=== PATIENT | female | born 1990 | race Caucasian/White ===

== ENCOUNTER 2018-11-11 16:45 | Emergency (ER) | payer OTHER ==
[2018-11-11 17:23] VITALS: BP 125/65
--- NOTE | 2018-11-11 17:27 | UC ---
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 DOGS UTD VACCINATIONS. PT UTD TETANUS. - History of Current Complaint Chief Complaint: UCBiteInjury Stated Complaint: DOG BITE Time Seen by Provider: 11/11/18 17:12 Hx Obtained From: Patient Hx Last Menstrual Period: 1 month ago Severity Currently: Moderate Severity Initially: Moderate Pain Intensity: 3 Pain Scale Used: 0-10 Numeric Onset/Duration: Sudden Onset, Lasting Hours, Still Present Type of Bite: Pet Has Animal Been Immunized?: Yes Character: Abrasion/Laceration Aggravating Factor(s): Nothing Alleviating Factor(s): Nothing Associated Signs And Symptoms: Negative: Fever, Erythema Animal Available for Observation: Yes - Allergies/Home Medications Allergies/Adverse Reactions: Allergies Allergy/AdvReac Type Severity Reaction Status Date / Time No Known Allergies Allergy Verified 11/11/18 17:18 Home Medications: Home Medications Eluxadoline (NF) [Viberzi] 75 mg PO DAILY 11/11/18 [History Confirmed 11/11/18] PMH/Surg Hx/FS Hx/Imm Hx Respiratory History: Asthma Other GI/ History: IBS - Surgical History Surgical History: None - Social History Alcohol Use: Weekly Substance Use Type: None Smoking Status (MU): Never Smoked Tobacco - Immunization History Most Recent Tetanus Shot: 2018 Review of Systems All Other Systems Reviewed And Are Negative: Yes Constitutional: Positive: Negative Skin: Positive: Other - lacerations Respiratory: Positive: Negative Cardiovascular: Positive: Negative Gastrointestinal: Positive: Negative Musculoskeletal: Positive: Negative Physical Exam Triage Information Reviewed: Yes Appearance: Well-Appearing, No Pain Distress, Well-Nourished Vital Signs: Initial Vital Signs Temp 98.8 F 11/11/18 17:16 Pulse 94 11/11/18 17:16 Resp 18 11/11/18 17:16 BP 125/65 11/11/18 17:16 Pulse Ox 100 11/11/18 17:16 Vital Signs Reviewed: Yes Eyes: Positive: Conjunctiva Clear ENT: Positive: Hearing grossly normal Neck: Positive: Supple Respiratory: Positive: No respiratory distress, No accessory muscle use Cardiovascular: Positive: Pulses Normal Abdomen Description: Positive: Soft Musculoskeletal: Positive: ROM Intact, No Edema Neurological: Positive: Alert Psychological: Positive: Age Appropriate Behavior Skin: Positive: Other - LACERATIONS: RIGHT FOREARM - 0.6CM. LEFT 4TH FINGER OVERLYING DIP - 1CM. LEFT PALM X 3 - 1.4CM, 1CM, 0.8CM. LEFT WRIST LATERALLY X 2 - 1.2CM, 1CM Procedures - Laceration/Wound Repair 1 Location: upper extremity - RIGHT FOREARM Description: Linear Anesthesia: Local, 1.0% Length, Depth and Shape: 0.6CM LONG, 3MM DEEP, LINEAR Laceration/Wound Explored: clean Closure: Single Layer - 1 SIMPLE INTERRUPTED Suture Type: Prolene - 5-0 Sterile Dressing Applied?: Yes 2 Location: upper extremity - LEFT 4TH FINGER Description: Linear Anesthesia: Local, 1.0% Length, Depth and Shape: 1CM LONG, 3MM DEEP, LINEAR Laceration/Wound Explored: clean Closure: Single Layer - 1 SIMPLE INTERRUPTED Suture Type: Prolene - 5-0 Sterile Dressing Applied?: Yes 3 Location: upper extremity - LEFT PALM Description: Linear Anesthesia: Local, 1.0% Length, Depth and Shape: 1.4CM LONG, 4MM DEEP, IRREGULAR Laceration/Wound Explored: foreign body removed - DOG HAIR Closure: Single Layer - 2 SIMPLE INTERRUPTED Suture Type: Prolene - 5-0 Sterile Dressing Applied?: Yes 4 Location: upper extremity - LEFT PALM Description: Linear Anesthesia: Local, 1.0% Length, Depth and Shape: 1CM LONG, 4MM DEEP, LINEAR Laceration/Wound Explored: foreign body removed - DOG HAIR Closure: Single Layer - 1 SIMPLE INTERRUPTED Suture Type: Prolene - 5-0 Sterile Dressing Applied?: Yes 5 Location: upper extremity - LEFT PALM Description: Linear Anesthesia: Local, 1.0% Length, Depth and Shape: 0.8CM LONG, 4MM DEEP, LINEAR Laceration/Wound Explored: foreign body removed - DOG HAIR Closure: Single Layer - 1 SIMPLE INTERRUPTED Suture Type: Prolene - 5-0 Sterile Dressing Applied?: Yes 6 Location: upper extremity - LWFT WRIST Description: Linear Anesthesia: Local, 1.0% Length, Depth and Shape: 1.2CM LONG, 4MM DEEP, LINEAR Laceration/Wound Explored: clean Closure: Single Layer - 2 SIMPLE INTERRUPTED Suture Type: Prolene - 5-0 Sterile Dressing Applied?: Yes 7 Location: upper extremity - LEFT WRIST Description: Linear Anesthesia: Local, 1.0% Length, Depth and Shape: 1CM LONG, 4MM DEEP, LINEAR Laceration/Wound Explored: clean Closure: Single Layer - 1 SIMPLE INTERRUPTED Suture Type: Prolene - 5-0 Sterile Dressing Applied?: Yes Diagnostics - Radiology LEFT HAND XRAY Radiology Interpretation Completed By: ED Physician Summary of Radiographic Findings: QUESTIONABLE LUCENCY THROUGH TRAPEZIUM. Bite Injury Course/Dx - Course Course Of Treatment: QUESTIONABLE LUCENCY THROUGH TRAPEZIUM. RADIOLOGY READ PENDING. WILL SEND TO [facility] AND CALL PT IF POSITIVE. IF POSITIVE WILL NEED ORTHO FOLLOW-UP. LACERATIONS LOOSELY CLOSED TODAY. AUGMENTIN X 10 DAYS. - Differential Dx/Diagnosis Provider Diagnosis: Dog bite of multiple sites of left hand and fingers, Dog bite of right forearm Discharge - Sign-Out/Discharge Documenting (check all that apply): Patient Departure All imaging exams completed and their final reports reviewed: Yes - Discharge Plan Condition: Stable Disposition: HOME Prescriptions: Amoxicillin/Clavulanate TAB* [Augmentin TAB 875*] 875 mg PO BID #19 tab Patient Education Materials: Animal Bite (ED), Laceration (ED) Referrals: Pito PETERSON,Rosa Salinas [Primary Care Provider] - Merlyn Dai MD [Medical Doctor] - Additional Instructions: KEEP DRESSINGS IN PLACE AND DRY FOR THE FIRST 24 HRS. THEN YOU MAY REMOVE THE DRESSING AND GENTLY CLEANSE WITH SOAP AND WATER. PAT DRY AND RE-BANDAGE. APPLY THIN LAYER ANTIBIOTIC OINTMENT UNDER BANDAGE FOR FIRST 3-4 DAYS ONLY. CHANGE BANDAGE DAILY AND NEEDED IF IT BECOMES SOILED OR WET. SEEK FOLLOW-UP IF YOU DEVELOP SPREADING REDNESS OF THE SKIN, PURULENT DRAINAGE, FEVER, INCREASED PAIN OR ANY OTHER CONCERNING SYMPTOMS. TAKE THE ANTIBIOTIC FOR THE FULL 10 DAYS. RETURN TO HAVE YOUR SUTURES REMOVED IN 10 DAYS WE WILL CALL YOU TONIGHT WITH YOUR XRAY REPORT. IF IT IS POSITIVE FOR BONY INJURY YOU WILL NEED TO FOLLOW-UP WITH ORTHO. - Billing Disposition and Condition Condition: STABLE Disposition: Home
[2018-11-11] MEDS ORDERED: Lidocaine 1%* 5 ML VIAL INJ ONE (17:47)
[2018-11-11] MEDS ORDERED: Amoxicillin/Clavulanate TAB* 875 MG PO ONE (19:11)
== END 2018-11-11 19:31 | disposition home or self-care (01) ==
LOC: UCEAST 16:45
DX: S51.811A Laceration without foreign body of right forearm, initial encounter (principal); S61.215A Laceration without foreign body of left ring finger without damage to nail, initial encounter; S61.412A Laceration without foreign body of left hand, initial encounter; S61.512A Laceration without foreign body of left wrist, initial encounter; W54.0XXA Bitten by dog, initial encounter; Y92.9 Unspecified place or not applicable; J45.909 Unspecified asthma, uncomplicated
CPT/HCPCS: 12002; 99202; A9270-GY; G0463

== ENCOUNTER 2018-11-21 16:25 | Emergency (ER) | payer OTHER ==
[2018-11-21 16:47] VITALS: BP 129/64
--- NOTE | 2018-11-21 16:51 | UC ---
Laceration HPI - HPI Summary HPI Summary: 28 yo female presents for suture removal. She had 9 total sutures placed on due to a dog bite. Has had no issues with these. No pain, drainage, or redness. - History Of Current Complaint Chief Complaint: UCLaceration Stated Complaint: SUTURE REMOVAL Time Seen by Provider: 11/21/18 16:42 Hx Last Menstrual Period: 1 week ago Laceration Location: Arm Pain Intensity: 0 - Allergies/Home Medications Allergies/Adverse Reactions: Allergies Allergy/AdvReac Type Severity Reaction Status Date / Time No Known Allergies Allergy Verified 11/21/18 16:48 PMH/Surg Hx/FS Hx/Imm Hx - Additional Past Medical History Additional PMH: IBS - Surgical History Surgical History: None - Family History Known Family History: Positive: None - Social History Occupation: Employed Full-time Lives: With Family Alcohol Use: Weekly Substance Use Type: None Smoking Status (MU): Never Smoked Tobacco - Immunization History Most Recent Tetanus Shot: 2018 Review of Systems All Other Systems Reviewed And Are Negative: Yes Constitutional: Positive: Negative Skin: Positive: Other - Sutures in place Respiratory: Positive: Negative Cardiovascular: Positive: Negative Musculoskeletal: Positive: Negative Neurological: Positive: Negative Psychological: Positive: Negative Physical Exam - Summary Physical Exam Summary: GENERAL: NAD. WDWN. No pain distress. SKIN: RIGHT arm with one suture in place. LEFT hand with [address] No sites with edema, erythema, pain, or drainage. NECK: Supple. Nontender. No lymphadenopathy. CHEST: No accessory muscle use. Breathing comfortably and in no distress. CV: Pulses intact. Cap refill <2seconds NEURO: Alert. PSYCH: Age appropriate behavior. Triage Information Reviewed: Yes Vital Signs: Initial Vital Signs Temp 98.8 F 11/21/18 16:44 Pulse 73 11/21/18 16:44 Resp 14 11/21/18 16:44 BP 129/64 11/21/18 16:44 Pulse Ox 100 11/21/18 16:44 Vital Signs Reviewed: Yes Laceration Course/Dx - Course/Dx Course Of Treatment: 9 sutures removed without difficulty. Lacerations healed well. - Diagnosis Provider Diagnosis: Visit for suture removal Discharge - Sign-Out/Discharge Documenting (check all that apply): Patient Departure All imaging exams completed and their final reports reviewed: No Studies - Discharge Plan Condition: Stable Disposition: HOME Patient Education Materials: Stitches Removal (ED) Referrals: Pito PETERSON,Rosa Salinas [Primary Care Provider] - - Billing Disposition and Condition Condition: STABLE Disposition: Home - Attestation Statements Provider Attestation: I did not see this patient. I was available for consult.
== END 2018-11-21 16:55 | disposition home or self-care (01) ==
LOC: UCEAST 16:25
DX: S41.111D Laceration without foreign body of right upper arm, subsequent encounter (principal); S61.412D Laceration without foreign body of left hand, subsequent encounter; W54.0XXD Bitten by dog, subsequent encounter

== ENCOUNTER 2020-11-28 09:33 | Inpatient (IN) ==
[2020-11-28] MEDS ORDERED: Lactated Ringers 1000 ml BAG 1,000 ML IV ONE ×2 (10:32→12:10)
[2020-11-28] MEDS ORDERED: OBEPIDURAL 250 ML EPIDURAL ONE (11:08)
[2020-11-28 11:10] LABS: ABS Lymphocytes 1.5 10^3/ul (1.0-4.8); ABS Monocytes 0.4 10^3/ul (0-0.8); ABS Neutrophils 14.5 10^3/ul (1.5-7.7); Hematocrit 41 % (35-47); Hemoglobin 13.9 g/dL (12.0-16.0); Lymphocyte % 9.1 %; Mean Corpuscular HGB Conc 34 g/dL (31-36); Mean Corpuscular Hemoglobin 34 pg (27-31); Mean Corpuscular Volume 99 fL (80-97); Mean Platelet Volume 10.6 fL (7.4-10.4); Platelet Count 177 10^3/uL (150-450); Red Blood Count 4.11 10^6 /uL (3.70-4.87); Red Cell Distribution Width 14 % (10-15); White Blood Count 16.4 10^3/uL (3.5-10.8)
[2020-11-28 11:39] LABS: Urine Benzodiazepine Screen None Detected (None Detect); Urine Cannabinoids Screen None Detected (None Detect); Urine Opiates Screen None Detected (None Detect)
[2020-11-28] MEDS ORDERED: Phenylephrine 40 mcg/mL 10mL (400mcg) SYRINGE IV PUSH PRN ×2 (12:10)
[2020-11-28] MEDS ORDERED: Sodium Citrate/Citric Acid LIQ 15 ML UDC PO PRN (12:10)
[2020-11-28] MEDS ORDERED: EPHEDrine (Pressors) 50 MG/ML VIAL IV PUSH PRN ×2 (12:10)
[2020-11-28] MEDS ORDERED: OBEPIDURAL 250 ML EPIDURAL SCH (13:00)
[2020-11-28] MEDS ORDERED: Lactated Ringers 1000 ml BAG 1,000 ML IV SCH ×2 (13:00→20:00)
[2020-11-28 13:18] LABS: Urine Appearance Clear; Urine Bilirubin Negative (Negative); Urine Blood Negative (Negative); Urine Color Yellow; Urine Glucose Negative (Negative); Urine Ketones 2+ (Negative); Urine Nitrite Negative (Negative); Urine Protein Negative (Negative); Urine Specific Gravity 1.014 (1.002-1.030); Urine Urobilinogen Negative (Negative)
[2020-11-28] MEDS ORDERED: Oxytocin in LR 20 UNITS/1,000 ML BAG IVPB ONE (18:52)
[2020-11-28] MEDS ORDERED: Witch Hazel PAD JAR TOPICAL PRN (19:36)
[2020-11-28] MEDS ORDERED: RHO D Immune Globulin (HUMAN) 300 MCG = 1,500 I.U. INJ IM PRN (19:37)
[2020-11-28] MEDS: Dibucaine 1% OINT 28.35 GM TUBE PR PRN (19:59)
[2020-11-28] MEDS ORDERED: Oxytocin in LR 20 UNITS/1,000 ML BAG IVPB SCH (20:00)
[2020-11-28] MEDS: HYOSCYAMINE 0.375 MG PO SCH (21:00)
[2020-11-28] MEDS ORDERED: Lidocaine 1% VIAL 10 MG/ML VIAL ONE (22:30)
[2020-11-29] MEDS ORDERED: ELUXADOLINE 75 MG PO SCH (09:00)
[2020-11-29 09:31] LABS: ABS Basophils 0.1 10^3/ul (0-0.2); ABS Lymphocytes 2.7 10^3/ul (1.0-4.8); ABS Monocytes 0.5 10^3/ul (0-0.8); Eosinophil % 0.2 %; Hematocrit 34 % (35-47); Hemoglobin 11.4 g/dL (12.0-16.0); Lymphocyte % 20.2 %; Mean Corpuscular HGB Conc 34 g/dL (31-36); Mean Corpuscular Hemoglobin 34 pg (27-31); Mean Corpuscular Volume 101 fL (80-97); Mean Platelet Volume 9.5 fL (7.4-10.4); Platelet Count 159 10^3/uL (150-450); Red Blood Count 3.37 10^6 /uL (3.70-4.87); Red Cell Distribution Width 14 % (10-15); White Blood Count 13.3 10^3/uL (3.5-10.8)
[2020-11-29] MEDS: HYOSCYAMINE 0.375 MG PO SCH ×2 (09:37→22:54)
[2020-11-29] MEDS: Dibucaine 1% OINT 28.35 GM TUBE PR PRN (19:05)
[2020-11-30] MEDS: HYOSCYAMINE 0.375 MG PO SCH (08:24)
[2020-11-30 08:40] VITALS: BP 115/68
== END 2020-11-30 11:53 | disposition home or self-care (01) ==
LOC: MCHOBOUT 09:33 → MCHOB 10:40
PROVIDERS: ADMIT Midwife; ATTEND Midwife

== ENCOUNTER 2023-01-02 08:09 | Inpatient (IN) ==
[2023-01-02] MEDS ORDERED: Promethazine INJ(RESTRICTED) 25 MG/ML 1 ml VIAL IV PRN (08:53)
[2023-01-02] MEDS ORDERED: Lactated Ringers 1000 ml BAG 1,000 ML IV ONE ×2 (08:53→13:30)
[2023-01-02] MEDS ORDERED: Buffered Lidocaine 1% SYRIN 1 ml INTRADERM ONE (08:53)
[2023-01-02] MEDS ORDERED: Lactated Ringers 1000 ml BAG 1,000 ML IV SCH ×4 (09:00→15:00)
[2023-01-02] MEDS ORDERED: Oxytocin in LR 20,000 MILLI.UNIT/1,000 ML BAG IV SCH ×2 (09:00→14:45)
[2023-01-02 09:38] LABS: ABS Basophils 0.1 10^3/uL (0.0-0.1); ABS Lymphocytes 1.8 10^3/uL (1.0-4.8); ABS Monocytes 0.5 10^3/uL (0.0-0.9); ABS Neutrophils 7.2 10^3/uL (1.5-7.6); Eosinophil % 0.5 %; Hematocrit 36.6 % (35-45); Hemoglobin 12.6 g/dL (11.5-14.3); Lymphocyte % 18.5 %; Mean Corpuscular Hemoglobin 32.8 pg (27-33); Mean Corpuscular Hgb Conc 34.5 g/dL (31-36); Mean Platelet Volume 9.8 fL (7.5-11.2); Platelet Count 167 10^3/uL (150-450); Red Blood Count 3.85 10^6/uL (3.63-4.92); Red Cell Distribution Width 13.6 % (12-17); White Blood Count 9.5 10^3/uL (3.8-11.8)
[2023-01-02 09:45] LABS: Urine Appearance Clear; Urine Bilirubin Negative (Negative); Urine Blood Negative (Negative); Urine Color Straw; Urine Glucose Negative (Negative); Urine Ketones Negative (Negative); Urine Nitrite Negative (Negative); Urine Protein Negative (Negative); Urine Specific Gravity 1.005 (1.002-1.030); Urine Urobilinogen Negative (Negative)
[2023-01-02 10:01] LABS: Urine Benzodiazepine Screen None Detected (None Detect); Urine Opiates Screen None Detected (None Detect)
[2023-01-02] MEDS: HYOSCYAMINE 0.375 MG PO SCH ×2 (10:56→20:55)
[2023-01-02] MEDS ORDERED: OBEPIDURAL (200 ML) 200 ML EPIDURAL ONE (12:48)
[2023-01-02] MEDS ORDERED: Lidocaine 1% w EPI 1:200,000 SDV 30 ML VIAL ONE (12:49)
[2023-01-02] MEDS ORDERED: Lactated Ringers 1000 ml BAG 500 ML IV PRN ×2 (13:30)
[2023-01-02] MEDS ORDERED: Sodium Citrate/Citric Acid LIQ 15 ML UDC PO PRN (13:30)
[2023-01-02] MEDS ORDERED: Phenylephrine 40 mcg/mL 10mL (400mcg) SYRINGE IV PUSH PRN ×2 (13:30)
[2023-01-02] MEDS ORDERED: OBEPIDURAL (200 ML) 200 ML EPIDURAL SCH (14:00)
[2023-01-02] MEDS ORDERED: RHO D Immune Globulin (HUMAN) 300 MCG = 1,500 I.U. INJ IM PRN (14:45)
[2023-01-02] MEDS ORDERED: Witch Hazel PAD JAR TOPICAL PRN (14:45)
[2023-01-02] MEDS: Dibucaine 1% OINT 28.35 GM TUBE PR PRN (15:33)
[2023-01-03 06:24] LABS: ABS Lymphocytes 1.1 10^3/uL (1.0-4.8); ABS Monocytes 0.3 10^3/uL (0.0-0.9); ABS Neutrophils 9.7 10^3/uL (1.5-7.6); ABS Nucleated RBC 0.01 10^3/ul; Eosinophil % 0.3 %; Hematocrit 38.1 % (35-45); Lymphocyte % 10.1 %; Mean Corpuscular Hemoglobin 32.7 pg (27-33); Mean Corpuscular Hgb Conc 34.1 g/dL (31-36); Mean Corpuscular Volume 95.9 fL (80-97); Mean Platelet Volume 9.4 fL (7.5-11.2); Platelet Count 165 10^3/uL (150-450); Red Blood Count 3.98 10^6/uL (3.63-4.92); Red Cell Distribution Width 13.5 % (12-17); White Blood Count 11.3 10^3/uL (3.8-11.8)
[2023-01-03] MEDS: HYOSCYAMINE 0.375 MG PO SCH ×2 (08:45→21:11)
[2023-01-04] MEDS: Dibucaine 1% OINT 28.35 GM TUBE PR PRN (05:03)
[2023-01-04 08:00] VITALS: BP 109/75
[2023-01-04] MEDS: HYOSCYAMINE 0.375 MG PO SCH (09:31)
== END 2023-01-04 11:27 | disposition home or self-care (01) | DRG 806 ==
LOC: MCHOBOUT 08:09 → MCHOB 08:33
PROVIDERS: ADMIT Registered Nurse; ATTEND Midwife